=== PATIENT | male | born 1985 | race Native Hawaiian/Other Pacific Islander ===

== ENCOUNTER 2017-04-04 08:59 | Emergency (ER) | payer BC ==
[2017-04-04 09:04] VITALS: BP 147/80; PULSE 88; RESP 20; TEMP 97.9; O2SAT 98
--- NOTE | 2017-04-04 10:24 | ED PDOC ---
HPI: Skin/Bite Injury Time Seen by Provider: 04/04/17 09:25 Chief Complaint (Nursing): Abnormal Skin Integrity History Per: Patient History/Exam Limitations: no limitations Onset/Duration Of Symptoms: Days (3), Gradual Current Symptoms Are (Timing): Still Present Quality Of Symptoms: Itching Severity: Mild Additional History Per: Patient Additional Complaint(s): Pt ambulates into Ed with c.o itchy rash to bilateral ankles that spreads up to mid calf since this morning. Pt states he had rash noted to back of neck 1 week ago. denies fevers. recent travel from [place] last week no sick contacts no prev sx. Past Medical History Reviewed: Historical Data, Nursing Documentation, Vital Signs Vital Signs: Last Vital Signs Temp 97.9 F 04/04/17 09:03 Pulse 88 04/04/17 09:03 Resp 20 04/04/17 09:03 BP 147/80 04/04/17 09:03 Pulse Ox 98 04/04/17 09:03 - Medical History PMH: HTN - Family History Family History: States: Unknown Family Hx - Living Arrangements Living Arrangements: With Family - Social History Current smoker - smoking cessation education provided: No - Home Medications Home Medications: Ambulatory Orders Medication Instructions Recorded Hydrocortisone 0.5% CREAM 30 applic TOP BID #1 tube 04/04/17 [Cortizone 0.5% CREAM] Permethrin 5% [Permethrin 5% Cream] 6 applic TOP ONCE #60 gr 04/04/17 - Allergies Allergies/Adverse Reactions: Allergies Allergy/AdvReac Type Severity Reaction Status Date / Time No Known Allergies Allergy Verified 04/04/17 09:12 Review of Systems ROS Statement: Except As Marked, All Systems Reviewed And Found Negative Constitutional: Negative for: Fever, Chills Cardiovascular: Negative for: Chest Pain, Palpitations Respiratory: Negative for: Cough, Shortness of Breath Gastrointestinal: Negative for: Nausea, Vomiting, Abdominal Pain Musculoskeletal: Negative for: Neck Pain Neurological: Negative for: Weakness, Numbness Physical Exam - Reviewed Nursing Documentation Reviewed: Yes Vital Signs Reviewed: Yes - Physical Exam Appears: Positive for: Well, No Acute Distress Head Exam: Positive for: ATRAUMATIC, NORMAL INSPECTION, NORMOCEPHALIC Skin: Positive for: Normal Color, Warm, Dry, Rash (bl papular rash to le ankles no other areas likely scabies) Eye Exam: Positive for: Normal appearance, EOMI, PERRL Neck: Positive for: Normal, Painless ROM, Supple Cardiovascular/Chest: Positive for: Regular Rate, Rhythm, Chest Non Tender. Negative for: Edema, Gallop Respiratory: Positive for: Normal Breath Sounds. Negative for: Decreased Breath Sounds, Accessory Muscle Use, Crackles Pulses-Dorsalis Pedis (L): 2+ Pulses-Dorsalis Pedis (R): 2+ Pulses-Post. Tibialis (L): 2+ Pulses-Post. Tibialis (R): 2+ Extremity: Positive for: Normal ROM, Capillary Refill (nml). Negative for: Tenderness, Pedal Edema, Calf Tenderness, Deformity, Swelling Neurologic/Psych: Positive for: Alert, excel vba developer II-XII, Oriented, Mood/Affect (calm) , Gait (steady). Negative for: Motor/Sensory Deficits - ECG O2 Sat by Pulse Oximetry: 98 Pulse Ox Interpretation: Normal - Progress ED Course And Treament: pt requesting missed am dose of norvasc. advise close f/u with pmd. Disposition - Clinical Impression Clinical Impression: Scabies - Patient ED Disposition Is Patient to be Admitted: No Counseled Patient/Family Regarding: Studies Performed, Diagnosis, Need For Followup - Disposition Referrals: [facility] [Outside] (2 to 3 days) Disposition: Routine/Home Disposition Time: 10:25 Condition: GOOD Prescriptions: Hydrocortisone 0.5% CREAM [Cortizone 0.5% CREAM] 30 applic TOP BID #1 tube Permethrin 5% [Permethrin 5% Cream] 6 applic TOP ONCE #60 gr Instructions: Scabies (ED)
== END 2017-04-04 10:44 | disposition home or self-care (01) ==
LOC: H.ER 08:59
DX: B86 Scabies (principal); I10 Essential (primary) hypertension